=== PATIENT | female | born 1945 | race Caucasian/White ===

== ENCOUNTER → 2016-10-20 | Outpatient (CLI) | payer OTHER ==
[~2016-10-20] VITALS: Ht 165.1 cm; Wt 53.5 kg
[~2016-10-20] MED LIST: AMBIEN 5 MG TABL5 M1 PO; ATIVAN0.5 MG PO; CIPROFLOXACIN500 M1 PO; CYMBALTA60 MG PO; DILAUDID 2 MG TA2 MG PO; DILAUDID 4 MG TA4 M1 PO; DILAUDID 4 MG TA4 MG PO; DITROPAN XL5 M1 PO; DOLOPHINE HCL5 MG PO; EFFEXOR XR75 MG PO; ESTRACE1 TUBE VAG; FAMVIR250 MG PO; FLAGYL500 MG PO; GABAPENTIN 100100 MG PO; GABAPENTIN100 MG PO; IMODIUM MULTI-1 EACH; IMODIUM MULTI-1 EACH PO; LACTULOSE10 GM/15 M PO; LEVOTHYROXIN0.075 MG PO; LEVOTHYROXIN0.088 MG PO; LEVOXYL100 MCG PO; LEVSIN-SL0.125 MG SL; LEXAPRO 10 MG T10 M1 PO; LORAZEPAM 2MG TA2 M1 PO; MARINOL2.5 MG PO; MEGACE40 MG/ML PO; MEGESTROL40 MG/1 M1 PO; METHADONE HCL 110 M1 PO; METHADONE HCL5 MG PO; METHADOSE10 M1 PO; METOCLOPRAMIDE10 MG PO; MYRBETRIQ50 MG PO; NABUMETONE 500500 M2 PO; NEURONTIN 300300 M1 PO; NEURONTIN 300M300 M2 PO; NEURONTIN600 MG PO; NUCYNTA100 MG PO; NUCYNTA50 MG PO; NUCYNTA75 MG PO; PANTOPRAZOLE SO40 MG; PERCOCET 10-321 EACH PO; PROTONIX40 M2 PO; REMERON 30 MG T30 M1 PO; SONATA10 MG PO; SYNTHROID75 MCG PO; SYNTHROID88 MCG PO; TRAMADOL 50 MG50 MG PO; TRAZODONE 150150 M1 PO; TRAZODONE HCL100 MG PO; VENLAFAXIN75 MG/1 T1 PO; VESICARE 5 MG TA5 MG PO; ZOLOFT25 MG PO
--- NOTE | ~2016-10-20 | HPC ---
[facility] [place] [address] PAIN MANAGEMENT CONSULTATION Name: VIVIENNE SAVAGE Room #: REG [facility] Les#: [id number] Admission: 10/20/16 Attend Phys: Michel Rivas DO Discharge: Date of : 46 Report #: [id number] THIS REPORT FOR: //name// CC: Wiley Rivas The patient is a 70-year-old female being treated for coccydynia, abdominal pain requiring complex medication management. Last seen in the pain clinic 07/14/2016. The patient was continued on methadone 5 mg q. 8 hours and tramadol 50 mg 4 or 5 a day. Urine drug screen at that time was positive for prescribed medications. The patient returns to pain clinic today. She is actually doing remarkably well. She has been able to gain a little weight, BMI is up to 19.6 kilograms per meter squared, she has been down to 18.5 kilograms per meter squared in the past. She notes pain is fairly nominal about 5/10. She presents to pain clinic today with her usual blue seat cushion, which she sits upon. She notes she is desirous of weaning off of her methadone. She rates her pain actually about 5/10, but states she feels more functional overall. PHYSICAL EXAMINATION: Fairly unremarkable 70-year-old female, BMI is 19.6 kilograms per meter squared. Blood pressure is 111/62, pulse is 80, respirations 16. Alert and oriented to person, place and time, judged to be a reasonable historian. She denies any skin breakdown. States she has been ambulating reasonably well. Lower extremity strength is symmetric. Right colorectal exam is deferred. We reviewed the fact that opiate medications are being used to provide analgesia adequate to support activities of daily living, not attempting to achieve a specific pain score on the 0-10 Visual Analog Scale. The current opiate medications are providing sufficient analgesia to allow the patient to participate in activities of daily living. The patient is not exhibiting any aberrant behavior suggestive of drug diversion. The patient is not having any adverse reactions to medications. The patient is not suffering from daytime somnolence or mental acuity changes. The patient is managing opiate-induced constipation with appropriate zmba-bps-tvcotsp agents and dietary considerations. The patient was counseled on concern for caution with operating a motor vehicle while using opiate medications. A physical exam was performed and the patient's functional status was evaluated. All patients with back pain were advised against the bed rest greater than 4 days and were advised to return to normal activities. Pain score assessment was noted and the treatment plan was reviewed with the patient. All current medications, both prescribed and OTC [place] [address] PAIN MANAGEMENT CONSULTATION Name: VIVIENNE SAVAGE Room #: REG LORI Saldana#: [id number] Admission: 10/20/16 Attend Phys: Michel Rivas DO Discharge: Date of : 46 Report #: [id number] electronic medical record. Tobacco screening was accomplished and smoking cessation was advised when indicated. BMI was noted and diet/exercise modification was recommended for all patients following outside normal parameters. I reviewed with the patient today their responsibilities to safeguard prescription medications, reviewed their responsibility to utilize medications only as prescribed by the physician. They are to seek and receive pain medications only from 1 physician group ( [facility]). They are to use 1 pharmacy and keep the clinic informed if they change pharmacies. Their responsibilities include making followup visits in a timely fashion and to avoid abrupt discontinuation of medication usage. Their responsibilities further include bringing their medications (bottles from the pharmacy with residual pills) to the visit for possible confirmation of pill counts and the patient understands it is their responsibility to submit to random drug screens to ensure both that the medications prescribed are present, and that no other controlled substances are present. All prescriptions provided today were generated electronically. ASSESSMENT: Coccydynia, abdominal pain requiring complex medication management. The patient is desirous of weaning off of methadone, which I am hopeful we can do. We talked today at length. We have elected to continue methadone 5 mg q. 8 hours on the prescription, but I will ask the patient to cut the tablet in half (we checked and the tablet is indeed scored); however, start taking one in the morning and half at noon, 1 at night. If after one month, she does well with this, I will have her drop to half tablet in the morning, half at noon, and one at night for a second month and for the third month, we will have her take half a tablet t.i.d. I will have her come back in 3 months and bring back any and all methadone tablets. We will do pill count at that time and determine how low she has been able to get down to (half tablet 3 times a day?). If she weans well over next three months, I think we can easily drop to simply one half b.i.d. for about 2 weeks, one half h.s. for 2 weeks and hopefully stop altogether. We will continue tramadol as needed for breakthrough pain, currently up to 5 tablets a day, though she is actually taking well 4 or 5 a day. Discharged in good and stable condition. Follow up in 3 months for reevaluation, earlier if needed. <ELECTRONICALLY SIGNED> By: Michel Rivsa DO 10/25/16 0729 [id number] [id number] Michel Rivas DO /nt
[2016-10-20 13:08] VITALS: BP 111/62
== END | disposition home or self-care (01) ==
LOC: PAIN 07:34
DX: M53.3 Sacrococcygeal disorders, not elsewhere classified (principal); G89.29 Other chronic pain; R10.9 Unspecified abdominal pain; Z87.891 Personal history of nicotine dependence

== ENCOUNTER → 2017-01-25 | Outpatient (CLI) | payer OTHER, MEDICARE ==
[~2017-01-25] VITALS: Ht 165.1 cm; Wt 55.8 kg
[~2017-01-25] MED LIST changes: +ZOFRAN ODT4 MG PO
--- NOTE | ~2017-01-25 | HPC ---
[facility] [place] [address] PAIN MANAGEMENT CONSULTATION Name: VIVIENNE SAVAGE Room #: REG LORI Saldana#: [id number] Admission: 01/25/17 Attend Phys: Michel Rivas DO Discharge: Date of : 46 Report #: [id number] THIS REPORT FOR: //name// CC: Wiley Rivas SUBJECTIVE: The patient is a 71-year-old female being treated for coccydynia, abdominal pain requiring complex medication management. She was last seen in the pain clinic on 10/20/2016. Continued on baseline medication including methadone 8 mg, we had tried weaning this, but she could not get lower than 3 a day. When she did, she had increased pain and decreased functional status. She is continued with tramadol 50 mg up to 5 a day for breakthrough pain. She returns to pain clinic today noting medications are providing sufficient analgesia to participate in activities of daily living. She brings with her usual blue cushion that she uses to sit upon. She tells me pain is 7 on 10 but well controlled for her. She has actually gained a little bit of weight. Her BMI is up to 20.5 kilograms per meter squared. She has struggled with BMI being in the 17-18 range for quite some time. Last urine drug screen on 07/14/2016, was positive for prescribed medications. The patient tells me today also that she was diagnosed with osteopenia and low vitamin D. She was started on vitamin D supplementation 50,000 units. She feels unfortunately that this medication caused significant nausea. She self-discontinued the medication but still has some ongoing nausea. She requested and I supplied a prescription for ondansetron 4 mg oral disintegrating tablet to be used q.8 hours as needed for nausea and vomiting. The patient was cautioned about increased constipation with this agent. Prescription was generated for 15 tablets with 2 refills. We reviewed the fact that opiate medications are being used to provide analgesia adequate to support activities of daily living, not attempting to achieve a specific pain score on the 0-10 Visual Analog Scale. The current opiate medications are providing sufficient analgesia to allow the patient to participate in activities of daily living. The patient is not exhibiting any aberrant behavior suggestive of drug diversion. The patient is not having any adverse reactions to medications. The patient is not suffering from daytime somnolence or mental acuity changes. The patient is managing opiate-induced constipation with appropriate frnw-xor-ndjjjvp agents and dietary considerations. The patient was counseled on concern for caution with operating a motor vehicle while using opiate medications. A physical exam was performed and the patient's functional status was evaluated. All patients with back pain were advised against the bed rest greater than 4 days and were advised to return to normal activities. Pain score assessment was noted and the treatment plan was reviewed with the patient. All current medications, both prescribed and OTC were reviewed [place] [address] PAIN MANAGEMENT CONSULTATION Name: VIVIENNE SAVAGE Room #: REG LORI Saldana#: [id number] Admission: 01/25/17 Attend Phys: Michel Rivas DO Discharge: Date of : 46 Report #: [id number] electronic medical record. Tobacco screening was accomplished and smoking cessation was advised when indicated. BMI was noted and diet/exercise modification was recommended for all patients following outside normal parameters. I reviewed with the patient today their responsibilities to safeguard prescription medications, reviewed their responsibility to utilize medications only as prescribed by the physician. They are to seek and receive pain medications only from 1 physician group ( [facility]). They are to use 1 pharmacy and keep the clinic informed if they change pharmacies. Their responsibilities include making followup visits in a timely fashion and to avoid abrupt discontinuation of medication usage. Their responsibilities further include bringing their medications (bottles from the pharmacy with residual pills) to the visit for possible confirmation of pill counts and the patient understands it is their responsibility to submit to random drug screens to ensure both that the medications prescribed are present, and that no other controlled substances are present. All prescriptions provided today were generated electronically. ASSESSMENT: Coccydynia; abdominal pain requiring complex medication management, stable on baseline medication; some acute nausea and vomiting, status post using vitamin D prescription strength. RECOMMENDATIONS: Follow up with her treating physician for the vitamin D. I did offer Zofran ODT (oral disintegrating tablet) 4 mg, dispensed 15 tablets to use it p.r.n. for nausea, vomiting. We will continue baseline narcotic unchanged, methadone 5 mg q.8 hours, and tramadol 50 mg up to 5 a day. I have taken the liberty of writing for 3 months of current medication. Follow up at that time, earlier if needed. <ELECTRONICALLY SIGNED> By: Michel Rivas DO 01/26/17 0925 1517 [id number] Michel Rivas DO /nt
[2017-01-25 12:36] VITALS: BP 105/54
== END | disposition home or self-care (01) ==
LOC: PAIN 07:40
DX: M53.3 Sacrococcygeal disorders, not elsewhere classified (principal); R10.9 Unspecified abdominal pain; G89.29 Other chronic pain; F11.20 Opioid dependence, uncomplicated; Z87.891 Personal history of nicotine dependence

== ENCOUNTER → 2017-04-26 | Outpatient (CLI) | payer OTHER, MEDICARE ==
[~2017-04-26] VITALS: Ht 165.1 cm; Wt 56.6 kg
--- NOTE | ~2017-04-26 | HPC ---
[facility] [place] [address] PAIN MANAGEMENT CONSULTATION Name: VIVIENNE SAVAGE Room #: REG LORI Saldana#: [id number] Admission: 04/26/17 Attend Phys: Michel Rivas DO Discharge: Date of : 46 Report #: [id number] THIS REPORT FOR: //name// CC: Wiley Rivas The patient is a 71-year-old female, long treated in the pain clinic for coccydynia and neuropathic pain, component of some abdominal pain requiring complex medication management. Last visit was 01/25/2017. The patient has had multiple surgeries including proctectomy with creation of a colostomy with only marginal improvement of pain. She is osteopenic and is on vitamin D supplementation. She notes her pain as a 6 on a 0-10 visual analog scale, primarily in the rectal area. She feels that there is neuroma at this point. That is probably true. Physical exam shows 71-year-old female, BMI is 20.8 kilograms per meter squared. She brings with her, her usual blue cushion upon which she sits. Blood pressure is a little low at 91/58, pulse 80, respirations are 12. She is alert and oriented to person, place and time, judged to be a reasonable historian and appears somewhat cachectic, presentation classic for chronic disease. Lower extremity strength is diminished, but adequate for ambulation. Rectal exam is referred. She follows with Dr. Wheatley. Again, her lap-assisted proctectomy and incisional hernia repair was December of 2012. She had had, I believe for initial bowel resection in August of 2012 with the ileostomy creation, May of 2012. We reviewed the fact that opiate medications are being used to provide analgesia adequate to support activities of daily living, not attempting to achieve a specific pain score on the 0-10 Visual Analog Scale. The current opiate medications are providing sufficient analgesia to allow the patient to participate in activities of daily living. The patient is not exhibiting any aberrant behavior suggestive of drug diversion. The patient is not having any adverse reactions to medications. The patient is not suffering from daytime somnolence or mental acuity changes. The patient is managing opiate-induced constipation with appropriate nqke-vmb-zuglvia agents and dietary considerations. The patient was counseled on concern for caution with operating a motor vehicle while using opiate medications. A physical exam was performed and the patient's functional status was evaluated. All patients with back pain were advised against the bed rest greater than 4 days and were advised to return to normal activities. Pain score assessment was noted and the treatment plan was reviewed with the patient. All current medications, both prescribed and OTC were reviewed and reconciled on the electronic medical record. Tobacco screening was accomplished and smoking cessation was advised when indicated. BMI was noted and diet/exercise modification was recommended for all patients following outside normal parameters. [address] [address] PAIN MANAGEMENT CONSULTATION Name: VIVIENNE SAVAGE Room #: REG [facility] Les#: [id number] Admission: 04/26/17 Attend Phys: Michel Rivas DO Discharge: Date of : 46 Report #: [id number] I reviewed with the patient today their responsibilities to safeguard prescription medications, reviewed their responsibility to utilize medications only as prescribed by the physician. They are to seek and receive pain medications only from 1 physician group ( [facility]). They are to use 1 pharmacy and keep the clinic informed if they change pharmacies. Their responsibilities include making followup visits in a timely fashion and to avoid abrupt discontinuation of medication usage. Their responsibilities further include bringing their medications (bottles from the pharmacy with residual pills) to the visit for possible confirmation of pill counts and the patient understands it is their responsibility to submit to random drug screens to ensure both that the medications prescribed are present, and that no other controlled substances are present. All prescriptions provided today were generated electronically. ASSESSMENT: Chronic abdominal pain with coccydynia, requiring complex medication management, stable on baseline medication including methadone 5 mg t.i.d. We elected to drop down tramadol a little bit from 5 to 4 tablets a day. I have taken the liberty of writing for 3 months of current medication. Last urine drug screen was July 2016, positive for prescribed medications. We will plan on repeating urine drug screen at next visit. It will be around 1 year since last UDS at that time. <ELECTRONICALLY SIGNED> By: Michel Rivas DO 04/30/17 1427 [id number] [id number] Michel Rivas DO /nt
[2017-04-26 12:47] VITALS: BP 91/58
== END | disposition home or self-care (01) ==
LOC: PAIN 11:03
DX: R10.9 Unspecified abdominal pain (principal); G89.29 Other chronic pain; M53.3 Sacrococcygeal disorders, not elsewhere classified; F11.20 Opioid dependence, uncomplicated; F41.8 Other specified anxiety disorders; M85.88 Other specified disorders of bone density and structure, other site; Z87.891 Personal history of nicotine dependence; Z88.8 Allergy status to other drugs, medicaments and biological substances; Z98.890 Other specified postprocedural states

== ENCOUNTER → 2017-10-22 | Outpatient (CLI) | payer OTHER, MEDICARE ==
[~2017-10-22] VITALS: Ht 165.1 cm; Wt 51.7 kg
[~2017-10-22] MED LIST changes: +BACTRIM DS TAB1 EACH PO; +BUPRENORPHIN-N1 EACH SUBLING; +BUPRENORPHN-NA1 EACH SUBLING; +CLONIDINE0.1 PO; +SUBOXONE 8 MG-1 EAC3 SUBLING; +TROSPIUM CHLORI20 MG PO
--- NOTE | ~2017-10-22 | HPC ---
[facility] [place] [address] PAIN MANAGEMENT CONSULTATION Name: VIVIENNE SAVAGE Room #: REG LORI Saldana#: [id number] Admission: 10/22/17 Attend Phys: Michel Rivas DO Discharge: Date of : 46 Report #: [id number] THIS REPORT FOR: //name// CC: Wiley Rivas DATE OF SERVICE: 10/22/2017 HISTORY OF PRESENT ILLNESS: The patient is a 71-year-old female, long known to pain clinic, typically treated for chronic rectal pain, coccydynia requiring high risk complex medication management. She was last seen in pain clinic on 07/23/2017. We continued the patient on methadone 5 mg t.i.d., tramadol for breakthrough pain 1 tablet 3-4 times a day. She returns to pain clinic today. We had a prolonged discussion about therapeutic options. She was actually seen in the pain clinic from [id number], greater than 50% of this 25+ minute visit was spent counseling the patient. 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 She has had surgical resection and in fact has had a proctectomy with ongoing pain. She notes pain continues to be problematic, but she feels that she is relatively stable. Today, we had a discussion about her desire to wean off opiate analgesics. The patient was started on opiates obviously for chronic pain issues. She notes that she has withdrawal symptoms if she misses dose and is very concerned about continuing opiate analgesics. We have talked about opiate habituation and tolerance at length on many occasions. She tells me she is ready to try and wean off opiates. Unfortunately, as she tried to drop down from 15 mg methadone tablets 3 times a day to even 1/2 a tablet at midday, she felt she had some opiate withdrawal symptoms including acute anxiety and agitation. We reviewed the fact that opiate medications are being used to provide analgesia adequate to support activities of daily living, not attempting to achieve a specific pain score on the 0-10 Visual Analog Scale. The current opiate medications are providing sufficient analgesia to allow the patient to participate in activities of daily living. The patient is not exhibiting any aberrant behavior suggestive of drug diversion. The patient is not having any adverse reactions to medications. The patient is not suffering from daytime somnolence or mental acuity changes. The patient is managing opiate-induced constipation with appropriate mwxa-knp-fkkoiwq agents and dietary considerations. The patient was counseled on concern for caution with operating a motor vehicle while using opiate medications. A physical exam was performed and the patient's functional status was evaluated. All patients with back pain were advised against the bed rest greater than [address] [place] [address] PAIN MANAGEMENT CONSULTATION Name: VIVIENNE SAVAGE Room #: REG [facility] Saldana#: [id number] Admission: 10/22/17 Attend Phys: Michel Rivas DO Discharge: Date of : 46 Report #: [id number] days and were advised to return to normal activities. Pain score assessment was noted and the treatment plan was reviewed with the patient. All current medications, both prescribed and OTC were reviewed and reconciled on the electronic medical record. Tobacco screening was accomplished and smoking cessation was advised when indicated. BMI was noted and diet/exercise modification was recommended for all patients following outside normal parameters. I reviewed with the patient today their responsibilities to safeguard prescription medications, reviewed their responsibility to utilize medications only as prescribed by the physician. They are to seek and receive pain medications only from 1 physician group ( [facility]). They are to use 1 pharmacy and keep the clinic informed if they change pharmacies. Their responsibilities include making followup visits in a timely fashion and to avoid abrupt discontinuation of medication usage. Their responsibilities further include bringing their medications (bottles from the pharmacy with residual pills) to the visit for possible confirmation of pill counts and the patient understands it is their responsibility to submit to random drug screens to ensure both that the medications prescribed are present, and that no other controlled substances are present. All prescriptions provided today were generated electronically. The patient has history of generalized osteoarthritis. BMI is 19 kilograms per meter squared. She struggles to maintain nutrition and has been counseled regarding protein supplementation. Vital signs otherwise stable, blood pressure 118/69, pulse 86, respirations 16, room air oxygen saturation is 94%. Pain intensity is a 7 on a VAS. She has had a single fall 2 months ago, though she uses a cane to help with balance. She is not on a blood thinner. She is not hypertensive. Medicines were reconciled today. Last opiate consent to treat contract was signed in 03/2016. Opiate risk assessment tool scores are in the low range at 3. The patient again is cachectic. She carries with her usual blue approximately 2-1/2 inch thick foam cushion that she typically sits on. Colorectal exam was deferred. ASSESSMENT: Symptomatic chronic pain syndrome, perirectal and coccydynia pain status post proctectomy with opiate habituation and tolerance concerns. RECOMMENDATION: Long discussion with the patient today about therapeutic option. Ultimately, she is taking 15 mg of methadone a day equating to about Cymbalta 60 mg of morphine and tramadol 3-4 a day likely adding another 10 or 15 mEq of morphine. We talked about rotating to Suboxone. Pointed out that it is merely another opiate; however, it does have a ceiling effect and typically is purported to be a little easier to wean. Roughly equally analgesic dose would be 12 mg of buprenorphine. We have elected to rotate to Suboxone 8/2 mg film [facility] [address] [place] [address] PAIN MANAGEMENT CONSULTATION Name: VIVIENNE SAVAGEN Room #: REG LORI Vidales.#: [id number] Admission: 10/22/17 Attend Phys: Michel Rivas DO Discharge: Date of : 47 Report #: [id number] strips, 1 film strip sublingual in the morning and one-half in the evening for 15 days and then dropping down to 8 mg, i.e., 1 film strip daily (may use 1/2 film strip b.i.d.). We will try this for 4 weeks. I have also written a prescription for clonidine 0.1 mg to use at bedtime to help with any sympathetically mediated opiate withdrawal symptoms. The patient was discharged in good and stable condition. She has 16-1/2 methadone tablets left. This should be sufficient for about 5 days. She would like to wait 5 days and consider moving forward with the opiate wean as discussed. I suggested she take the Suboxone prescription to the pharmacy to get filled as they may not have this medication directly. I did use my [id number] TERESA number and told the patient that she will need to seek counseling for opiate habituation and addiction issues with helped for a counseling regarding distraction and other techniques to help manage chronic pain concerns. She was given contact information for Dr. Jaclyn Ramos ([phone]) and Dr. Jerome Elliott ([phone]). Both psychologists in her geographic area ([place], [place]). We have used Dr. Jaclyn Ramos many times for help with chronic pain concerns. The patient was discharged today in good stable condition after a prolonged visit. I did leave on the chart a prescription for methadone 5 mg t.i.d. and tramadol 50 mg 1 tablet 3-4 times a day, limit 100 tablets for 30 days if the patient fails Suboxone therapy and/or if she is unable to get the prescription filled. Discharged in good and stable condition. Follow up in 4 weeks for reevaluation. <ELECTRONICALLY SIGNED> By: Michel Rivas DO 10/24/17 0807 1437 [id number] Michel Rivas DO /nt
[2017-10-22 13:04] VITALS: BP 118/69
== END ==
LOC: PAIN 07:10
DX: G89.4 Chronic pain syndrome (principal); K62.89 Other specified diseases of anus and rectum; M53.3 Sacrococcygeal disorders, not elsewhere classified; F11.20 Opioid dependence, uncomplicated; Z98.890 Other specified postprocedural states; Z79.899 Other long term (current) drug therapy

== ENCOUNTER → 2017-11-23 | Outpatient (CLI) | payer OTHER, MEDICARE ==
[~2017-11-23] VITALS: Ht 165.1 cm; Wt 49.3 kg
--- NOTE | ~2017-11-23 | HPC ---
[facility] [place] [address] PAIN MANAGEMENT CONSULTATION Name: VIVIENNE SAVAGE Room #: REG Michelle Vidales.#: [id number] Admission: 11/23/17 Attend Phys: Michel Rivas DO Discharge: Date of : 46 Report #: [id number] THIS REPORT FOR: //name// CC: Wiley Rivas DATE OF SERVICE: 11/23/2017 The patient is a 71-year-old female, long treated for chronic rectal pain, coccydynia, requiring high-risk complex medication management. Last seen in the Pain Clinic on 10/22/2017. The patient had elected at that time to try and wean off of opiate analgesics. She has been stable on methadone 5 mg t.i.d. for quite some time. After a long discussion with the patient, we rotated to Suboxone, initially starting at 12 mg (one 8 mg and one-half of an 8 mg tablet daily) for about 10 days, then decreasing to 8 mg daily. We gave her contact information for . Dr. Jaclyn Ramos and Dr. Jerome Elliott, both psychologist in her geographic area ([place], [place]) who are versed in habituation, addiction, and pain issues. Unfortunately, she was unable to get in to any of these providers. To her credit, she has continued to wean her opiate analgesics. She returns to Pain Clinic today. We again had a prolonged visit, she was seen from 1325 to approximately 1350, greater than 50% of this 25-minute visit was spent counseling the patient. Again, the patient has an opiate consent to treat contract with contract signed 04/28/2016. Last random drug screen 07/23/2017 was positive for prescribed medication at that time including methadone and tramadol. To her credit, she has continued to wean opiate analgesics and is very desirous of same. I talked about chronic rectal pain, which she rates only to 3-5 on a VAS. She has a neuroma and consistently carries a small blue cushion upon what she sits. She states with weaning opiate, she has not had any issues with opiate withdrawal. No anxiety, nausea, or vomiting. Long discussion with the patient today about therapeutic options and continued weaning. After a prolonged discussion, we have elected to continue Suboxone, currently 8 mg. We will decrease to 6 mg for 20 days (one-half of an 8 mg tablet + a 2 mg tablet ) . I have taken the liberty of writing for Suboxone 2/0.5, #30 tablets. She will use this for 20 days (with one half of an 8 mg tab) and stop. She will then have 10 of the Suboxone 2 mg tablets in reserve. I have taken the liberty of writing for Suboxone 8/2 tablets dispensed #14. This will be released in 20 days. She will use one-half of a tablet for 28 days (4 mg). At that point, we will have her drop down to the 2 mg tablets and use the residual 10 tablets. I will see her back in approximately 60 days if we need to continue any opiate analgesics. If, however, she is able to continue off all [address] [address] PAIN MANAGEMENT CONSULTATION Name: VIVIENNE SAVAGE Room #: REG LORI Saldana#: [id number] Admission: 11/23/17 Attend Phys: Michel Rivas, DO Discharge: Date of : 46 Report #: [id number] opiates, we will see her simply on an as needed basis. Discharged in good and stable condition after prolonged visit. ASSESSMENT: Chronic rectal pain, coccydynia, status post proctectomy with chronic neuropathic pain requiring complex medication management. We reviewed the fact that opiate medications are being used to provide analgesia adequate to support activities of daily living, not attempting to achieve a specific pain score on the 0-10 Visual Analog Scale. The current opiate medications are providing sufficient analgesia to allow the patient to participate in activities of daily living. The patient is not exhibiting any aberrant behavior suggestive of drug diversion. The patient is not having any adverse reactions to medications. The patient is not suffering from daytime somnolence or mental acuity changes. The patient is managing opiate-induced constipation with appropriate iqrv-xhh-tshiaur agents and dietary considerations. The patient was counseled on concern for caution with operating a motor vehicle while using opiate medications. A physical exam was performed and the patient's functional status was evaluated. All patients with back pain were advised against the bed rest greater than 4 days and were advised to return to normal activities. Pain score assessment was noted and the treatment plan was reviewed with the patient. All current medications, both prescribed and OTC were reviewed and reconciled on the electronic medical record. Tobacco screening was accomplished and smoking cessation was advised when indicated. BMI was noted and diet/exercise modification was recommended for all patients following outside normal parameters. I reviewed with the patient today their responsibilities to safeguard prescription medications, reviewed their responsibility to utilize medications only as prescribed by the physician. They are to seek and receive pain medications only from 1 physician group ( [facility]). They are to use 1 pharmacy and keep the clinic informed if they change pharmacies. Their responsibilities include making followup visits in a timely fashion and to avoid abrupt discontinuation of medication usage. Their responsibilities further include bringing their medications (bottles from the pharmacy with residual pills) to the visit for possible confirmation of pill counts and the patient understands it is their responsibility to submit to random drug screens to ensure both that the medications prescribed are present, and that no other controlled substances are present. All prescriptions provided today were generated electronically. <ELECTRONICALLY SIGNED> By: Michel Rivas DO 11/26/17 0747 [id number] Michel Rivas DO /nt
[2017-11-23 13:04] VITALS: BP 108/62
== END ==
LOC: PAIN 11-19 11:23
DX: G89.29 Other chronic pain (principal); K62.89 Other specified diseases of anus and rectum; M53.3 Sacrococcygeal disorders, not elsewhere classified; M79.2 Neuralgia and neuritis, unspecified; Z79.899 Other long term (current) drug therapy; Z98.890 Other specified postprocedural states

== ENCOUNTER → 2017-12-31 | Outpatient (CLI) | payer OTHER, MEDICARE ==
[~2017-12-31] VITALS: Ht 165.1 cm; Wt 48.1 kg
--- NOTE | ~2017-12-31 | HPC ---
[facility] [place] [address] PAIN MANAGEMENT CONSULTATION Name: VIVIENNE SAVAGEN Room #: REG Michelle Saldana#: [id number] Admission: 12/31/17 Attend Phys: Michel Rivas DO Discharge: Date of : 46 Report #: [id number] THIS REPORT FOR: //name// CC: Wiley Rivas The patient is a 72-year-old female, originally seen for assistance with management of chronic perirectal pain. I believe I initially saw her in August 2012. She had chronic coccydynia. She had a surgical ileostomy. She was taking Percocet 10/325 for pain. We had a plan to rotate to Suboxone and wean off. Her insurance initially did not cover Suboxone, we rotated to methadone and hydromorphone for breakthrough. 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 She had ongoing pain in the anal stump for a number of years, again at that time treated with methadone and some breakthrough hydromorphone. She had a proctectomy late 2012. We had rotated the hydromorphone to tapentadol with methadone as a basal medication. Beginning of this year in October, the patient expressed desire to wean off of all opiates. At that time, she was taking methadone 5 mg t.i.d. and we had rotated to tramadol for breakthrough pain. She noted she was relatively comfortable at rest, felt she was at her maximum improvement following her perirectal surgeries. We rotated Suboxone / one and half tablets (12 mg) and slowly weaned down. She returned to the pain clinic today. She has been taking Suboxone 4 mg for 16 days. She notes no opiate withdrawal issues. She rates pain 2 on a VAS. Again, she notes a fairly comfortable at rest, the pain does seem to exacerbate sitting on harder chairs. We talked about general activity, she remains quite cachectic, BMI is 17.6 kg/m2. We had discussed this ad nauseum over the years. Today, we did discuss increasing physical activity. The patient used to have a dog that she would occasionally walk, dog about a year and a half ago, 4 months later she did get a mini schnauzer, she has had this dog for about 10 months. I talked about trying to take the dog for a walk on a daily basis. Ultimately, after discussion, the patient does agree that walking would help her general affective disorder, suggested she get outside and walk at least 20 minutes (simply walk 1 direction for 10 minutes and then turned around for another 10 minutes). PHYSICAL EXAMINATION: Otherwise is unchanged, 72-year-old female, again quite thin with a BMI of 17.6 kg/m2. Blood pressure is 107/65, pulse 75, respirations are 14. Cranial nerves 2-12 are grossly intact. She is alert and oriented to person, place and time, judged to be a reasonable historian. Again, sitting on her blue pillow, she is relatively comfortable. She rises from chair using armrest. Gait is slightly ataxic, but generally tandem. Lower extremity [address] [address] PAIN MANAGEMENT CONSULTATION Name: VIVIENNE SAVAGE Room #: REG CL Les#: [id number] Admission: 12/31/17 Attend Phys: Michel Rivas, Discharge: Date of : 46 Report #: [id number] strength is diminished, but symmetric. Rectal exam is deferred. ASSESSMENT: Chronic coccydynia, rectal pain, requiring complex medication management. RECOMMENDATIONS: Long discussion with the patient today. We have elected to continue Suboxone 4 mg daily (I have taken the liberty of writing for Suboxone 05/02, dispensed 15 strips). She has tried tablets, I wrote for the 2 mg tablets at last visit, they caused some nausea, she ultimately brought many of them back for us to destroy (I will continue with 1/2 strip for 30 days, keeping her dose at 4 mg for a total of about 35 days). I wrote for a second prescription for Suboxone 05/02, she will try cutting these in fourths. Unfortunately, the 2 mg tablets are quite costly, this seems to be the most thrifty way to get her to help wean her agent. At 2 mg strips, this should last about nearly 2 months. We will have her simply discontinue medication at that time. We will be happy to see her on an as needed basis. Discharged in good and stable condition. Hopefully, follow up only be if symptoms change, hopefully she will be able to wean completely off of all opiate analgesics as planned. By: [id number] Michel Rivas, /nt
[2017-12-31 12:31] VITALS: BP 107/65
== END ==
LOC: PAIN 07:21
DX: G89.29 Other chronic pain (principal); M53.3 Sacrococcygeal disorders, not elsewhere classified; Z79.899 Other long term (current) drug therapy

== ENCOUNTER → 2018-04-04 | Outpatient (CLI) | payer OTHER, MEDICARE ==
[~2018-04-04] VITALS: Ht 165.1 cm; Wt 44.9 kg
--- NOTE | ~2018-04-04 | HPC ---
[facility] [place] [address] PAIN MANAGEMENT CONSULTATION Name: VIVIENNE SAVAGE Room #: REG Michelle Saldana#: [id number] Admission: 04/04/18 Attend Phys: Michel Rivas DO Discharge: Date of : 46 Report #: [id number] THIS REPORT FOR: //name// CC: Wiley Rivas The patient is a 72-year-old female, typically treated for perirectal pain, coccydynia, neuropathic pain requiring complex medication management. Last seen in pain clinic on 12/31/2017. The patient had ultimately progressed to have a total colectomy in 2012, has had ongoing perirectal pain. She had been stable for a great deal of time on methadone 5 mg t.i.d. She wished to wean off medications. We rotated to Suboxone, and she actually had accomplished a very nice wean, was down to a literally 1 mg or less a day, weaning off Suboxone. Unfortunately, she fell last Sunday in the bathroom. She was started on her third round of different agents to help with urinary incontinence (tolterodine). One dose of this caused some subjective vertigo and dizziness. Because of this, she fell in the bathroom, significantly exacerbated axial back pain and perirectal pain. She did start using Suboxone up to 8/2 a day for a short period. She is back down to 12/30. She is scheduled to start seeing a psychiatrist and a psychologist at [facility]. Her intake evaluation is 04/17/2018. The patient suffers from lot of anxiety and anorexia. I think that there may have been some component of anxiety exacerbating her pain. I am happy that she is following with a psychiatrist. This may help with her general affective disorder, anxiety and may help with pain as well. I do not feel she has significant opiate habituation issues. She has been able to wean off her agent easily. PHYSICAL EXAMINATION: Today notes a cachectic 72-year-old female, BMI has dwindled even further down to 16.5 kilograms per meter squared (17.6 kilograms per meter squared at last visit). I talked again at length about concerns for her anorexia and likely component of osteopenia. I strongly encouraged to follow up with her psychiatrist. Vital signs are stable as noted in the EMR. She is alert and oriented to person, place and time, judged to be a reasonable historian. Rises from the chair using armrest. Gait is tandem. Lower extremity strength is diminished, but symmetric. Perirectal exam is deferred. She has subjective low back pain. ASSESSMENT: Perirectal pain, neuropathic pain, coccydynia, requiring complex medication management. RECOMMENDATION: Long discussion with the patient today. Ultimately, we would like to continue to provide another prescription for Suboxone 05/[address] [address] PAIN MANAGEMENT CONSULTATION Name: VIVIENNE SAVAGE Room #: REG LORI Saldana#: [id number] Admission: 04/04/18 Attend Phys: Michel Rivas DO Discharge: Date of : 46 Report #: [id number] #[id number] Directions to take half to one daily. She has a coupon from the suboxone chemical process operator enabling her to purchase 20 tablets for around 178 dollars. We discussed weaning off Suboxone again, and this is the plan: Continue with 0.5 film strip 4/1 daily for a few days and then start cutting this in half down to 2 and then ultimately a sliver at 1 mg. With this, I believe the patient should be able to wean off in a couple of weeks. She will have a few strips at home if she has acute exacerbation of pain. She has shown herself to be very diligent about weaning off this agent, and I trust that she will be able to do so again. No followup appointment was made. If she does require resumption of Suboxone for pain, we will have her follow up with Dr. Juan Stiles. Patient was seen for 25+ minute clinic visit, greater than 50% of this time was spent counseling patient. Encouraged to follow up with psychiatric/psychologist visits. Discussed resumption of opiate wean via Suboxone Rx. Discussed concerns for anorexia and concerns for osteopenia. No follow up appointment scheduled at this time. <ELECTRONICALLY SIGNED> By: Michel Rivas DO 04/05/18 0715 1353 1815 Michel Rivas DO /nt
[2018-04-04 12:36] VITALS: BP 105/63
== END ==
LOC: PAIN 07:09
DX: K62.89 Other specified diseases of anus and rectum (principal); M79.2 Neuralgia and neuritis, unspecified; M53.3 Sacrococcygeal disorders, not elsewhere classified; Z79.899 Other long term (current) drug therapy

== ENCOUNTER → 2018-07-25 | Outpatient (CLI) | payer OTHER, MEDICARE ==
[~2018-07-25] VITALS: Ht 165.1 cm; Wt 42.6 kg
--- NOTE | ~2018-07-25 | HPC ---
[facility] [place] [address] PAIN MANAGEMENT CONSULTATION Name: VIVIENNE SAVAGE Room #: REG [facility] Les#: [id number] Admission: 07/25/18 Attend Phys: Gabrielle Krishnamurthy Discharge: Date of : 46 Report #: [id number] THIS REPORT FOR: //name// CC: Gabrielle Moore DATE OF SERVICE: 07/25/2018 CHIEF COMPLAINT: Today here for refill of medical management for her chronic rectal pain. HISTORY OF PRESENT ILLNESS: The patient is a 72-year-old female who has been treated for her perirectal pain, neuropathic pain requiring complex medication management. She was last seen in the pain clinic by Dr. Michel Rivas in 03/2018. She has had ongoing pain that resulted in a total colectomy. The patient today has been having increased problems with her GI tract and is actually having a barium swallow tomorrow. She is being seen by Dr. Wheatley. She is continuing to lose weight and is very anorexic. Since our last visit in March, she has lost 5 pounds. She states that her pain medicine is helpful in relieving some of her pain that is chronic and achy in her rectal area. She also sits on a pillow at all times. Rates her pain today as 5/10. She states that she would though like to get off of her Suboxone, but is unable to do so and is requesting a refill at this time. ALLERGIES: AMOXICILLIN, OXYBUTYNIN, TROSPIUM, STATINS, HYDROCODONE, MIRALAX, AND LATEX. CURRENT MEDICATIONS: She takes on a daily basis Suboxone 8/2 one-half a film daily, Synthroid 75 mcg a day, trazodone 200 mg a day and lorazepam 0.5 mg twice a day. PQRS: 1. The patient has osteoarthritis in her back and joints. Denies rheumatoid arthritis. 2. Height 5 feet 5 inches, weight 94, BMI is 15.6. 3. Blood pressure is 100/63, pulse is 67, respirations 16, oxygen sat is 99. 4. Pain score today is 5/10. 5. Denies dizziness. Does not need help walking or standing and has not fallen in the last 3 months. 6. No blood thinners. 7. No History of hypertension. 8. Does have opioid therapy greater than 6 weeks and has an opioid signed contract on the chart. 9. The patient has a low risk assessment tool. 10. Functional assessment is 32/70. 11. The patient's recreational drug use, she denies. She states she is a [address] [address] PAIN MANAGEMENT CONSULTATION Name: VIVIENNE SAVAGE Room #: REG [facility] Les#: [id number] Admission: 07/25/18 Attend Phys: Gabrielle Krishnamurthy Discharge: Date of : 46 Report #: [id number] former smoker, but not smoking at this time and is not using alcohol. We did do [facility] PDMP, on that she is appropriate with her narcotic refill from Dr. Michel Rivas in the past and now will be Dr. Stiles. The patient also takes benzodiazepines that seem appropriate from her stated doctor. The patient states she does lock up her medicines and so no apparent abuse or aberrant behavior is noted. PHYSICAL EXAMINATION: Today, this 72-year-old female, catatonic, very anorexic female, has dwindled her BMI even further from last visit by decreasing 5 pounds within 3 months. She is alert and oriented without sedation. She rises from the chair using the armrest. Her gait is tandem. Her lower extremity and upper extremities strength is diminished, but symmetrical. She does state she has low back pain. DIAGNOSTIC IMPRESSION: 1. Perirectal pain. 2. Neuropathic pain. 3. Complex medication management. We reviewed the fact that opiate medications are being used to provide analgesia adequate to support activities of daily living, not attempting to achieve a specific pain score on the 0-10 Visual Analog Scale. The current opiate medications are providing sufficient analgesia to allow the patient to participate in activities of daily living. The patient is not exhibiting any aberrant behavior suggestive of drug diversion. The patient is not having any adverse reactions to medications. The patient is not suffering from daytime somnolence or mental acuity changes. The patient is managing opiate-induced constipation with appropriate tbdz-fnb-zfhznzm agents and dietary considerations. The patient was counseled on concern for caution with operating a motor vehicle while using opiate medications. A physical exam was performed and the patient's functional status was evaluated. All patients with back pain were advised against the bed rest greater than 4 days and were advised to return to normal activities. Pain score assessment was noted and the treatment plan was reviewed with the patient. All current medications, both prescribed and OTC were reviewed and reconciled on the electronic medical record. Tobacco screening was accomplished and smoking cessation was advised when indicated. BMI was noted and diet/exercise modification was recommended for all patients following outside normal parameters. I reviewed with the patient today their responsibilities to safeguard prescription medications, reviewed their responsibility to utilize medications only as prescribed by the physician. They are to seek and receive pain medications only from 1 physician group ([facility]). They are to use [address] [address] PAIN MANAGEMENT CONSULTATION Name: VIVIENNE SAVAGE Room #: REG [facility]#: [id number] Admission: 07/25/18 Attend Phys: Gabrielle Krishnamurthy Discharge: Date of : 46 Report #: [id number] pharmacy and keep the clinic informed if they change pharmacies. Their responsibilities include making followup visits in a timely fashion and to avoid abrupt discontinuation of medication usage. Their responsibilities further include bringing their medications (bottles from the pharmacy with residual pills) to the visit for possible confirmation of pill counts and the patient understands it is their responsibility to submit to random drug screens to ensure both that the medications prescribed are present, and that no other controlled substances are present. All prescriptions provided today were generated electronically. PLAN: 1. It was discussed today with the patient for a significant amount of time regarding her appetite and her significant weight loss. The patient states that Dr. Wheatley is continuing to treat her and has ordered barium swallow for tomorrow at [facility] and she continues under his care and he has done other tests recently to determine her weight loss. She states that she does have an appetite, but is not absorbing any food and her ileostomy fill quite quickly after eating anything. 2. We provided her a prescription for Suboxone 05/02 film strips, 20. The patient will use half to one film a day. The patient is hopeful to be able to decrease this to a quarter to a half film per day, then half to none and then off. 3. The patient will be seen in 3 months or sooner if needed for further pain control. The patient was seen in collaboration with Dr. Juan Stiles today. <ELECTRONICALLY SIGNED> By: Gabrielle Krishnamurthy 07/26/18 1222 1454 0226 Gabrielle Krishnamurthy /nt
[2018-07-25 14:02] VITALS: BP 100/63
== END ==
LOC: PAIN 06:56
DX: K62.89 Other specified diseases of anus and rectum (principal); G89.29 Other chronic pain; M79.2 Neuralgia and neuritis, unspecified; Z79.899 Other long term (current) drug therapy

== ENCOUNTER → 2018-10-07 | Outpatient (CLI) | payer OTHER, MEDICARE ==
[~2018-10-07] VITALS: Ht 165.1 cm; Wt 42.8 kg
[2018-10-07 12:59] VITALS: BP 104/56
--- NOTE | 2018-10-07 13:01 | NUR ---
Pain Clinic Assessment: 1. History of Osteoarthritis: GENERALIZED History of Rheumatoid Arthritis: Not Applicable 2. Height: 5 ft. 5 in. 165.1 cm. Weight: 94.4 lb. oz. 42.819 kg. Patient's BMI: 15.7 3. Vital Signs: BP: 104/56 Pulse: 71 Resp: 16 Temp: 02 Sat: 97 ECG Mon: 4. Pain Intensity: 5 5. Fall Risk: Dizziness: N Needs help standing or walking: N Fallen in the last 3 months: N Fall risk comments: 6. Patient on Blood Thinner: None 7. History of Hypertension: N 8. Opioid Therapy greater than 6 weeks: Y Opiate Contract Signed: 12/31/17 9. Risk Assessment Tool Provided: LOW RISK 0/3 10. Functional Assessment Tool: 11. Recreational Drug Use: Never Drug Type: Tobacco Use: Former Smoker Tobacco Type: Amount or Packs/day: How Many Years: Alcohol Use: No Frequency: Quant:
--- NOTE | 2018-10-08 08:10 | HPC ---
[facility] [address] [place] [address] PAIN MANAGEMENT CONSULTATION Name: VIVIENNE SAVAGE Room #: REG LORI Saldana#: [id number] Admission: 10/07/18 Attend Phys: Gabrielle Krishnamurthy Discharge: Date of : 47 Report #: [id number] THIS REPORT FOR: //name// CC: Gabrielle Stiles DATE OF SERVICE: 10/07/2018 CHIEF COMPLAINT: Chronic rectal pain. HISTORY OF PRESENT ILLNESS: This is a 72-year-old female who has been treated for perirectal pain and neuropathic pain requiring complex medical management. 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 She is here for refill of her Suboxone. The patient tells me that she has been taking about 3 mg per day, last prescriptions that we wrote for the patient were in July, I think it may be slightly less medication than she is reporting. The patient tells me that she takes a half and then a quarter of the other half of her medication. She would like to stay on this regimen for another month and then she will decrease to half of a half or quarter of a patch and then slowly wean off as she is transitioning to do. The patient tells me that she recently started Myrbetriq 50 mg to help with her constipation, diarrhea. She tells me that her ileostomy is normal right now output for her. She tells me that she is not having any daytime somnolence and just would like a refill of her Suboxone today. CURRENT LIST OF ALLERGIES: AMOXICILLIN, STATINS, HYDROCODONE, MIRALAX, LATEX, OXYBUTYNIN. CURRENT LIST OF MEDICATIONS: Suboxone 8/2 film as directed, Zofran 4 mg ODT, Synthroid 0.75 tablets daily, trazodone 200 mg at bedtime and lorazepam 0.5 twice a day as needed for anxiety. PQRS: 1. The patient has osteoarthritis in her back and her joints. Denies rheumatoid arthritis. 2. Height 5 feet 5 inches, weight is 94, BMI is 15.6. 3. Vital signs: Blood pressure 100/63, pulse is 67, respirations 16, oxygen sat is 99%. Pain score is 5/10. 4. Denies dizziness. Does not need help walking or standing, has not fallen in the last 3 months. 5. The patient is not on any blood thinners and denies history of hypertension. 6. Opioid therapy is greater than 6 weeks. Therefore, an opioid signed contract is on the chart. 7. Risk assessment tool is low and her functional assessment is 32/70. [address] [address] PAIN MANAGEMENT CONSULTATION Name: VIVIENNE SAVAGE Room #: REG Michelle Saldana#: [id number] Admission: 10/07/18 Attend Phys: Gabrielle Krishnamurthy Discharge: Date of : 47 Report #: [id number] 8. Recreational drug use, she denies, is a former smoker and does not drink alcohol. We did check the prescription monitoring system, the patient filling appropriately from Dr. Juan Stiles. We will check a drug screen on her next visit, the last one has been within a year. The patient tells me she safeguards her medications. PHYSICAL EXAMINATION: GENERAL: This is a 72-year-old female who is very catatonic, very anorexic female. Her weight has stabilized at 94 pounds from the last visit. She is alert and orientated without sedation and proved to be a good historian. HEENT: Normocephalic, atraumatic. Extraocular eye muscles are intact. Mucous membranes are dry. Her hearing is adequate. MUSCULOSKELETAL: She rises from the chair using the armrest. Her gait is tandem. Her lower and upper extremity strength is diminished, but symmetrical. She does state that she has some low back pain and rectal pain today. ASSESSMENT: 1. Perirectal pain. 2. Neuropathic pain. 3. Complex medical management. 4. Coxodynia. We reviewed the fact that opiate medications are being used to provide analgesia adequate to support activities of daily living, not attempting to achieve a specific pain score on the 0-10 Visual Analog Scale. The current opiate medications are providing sufficient analgesia to allow the patient to participate in activities of daily living. The patient is not exhibiting any aberrant behavior suggestive of drug diversion. The patient is not having any adverse reactions to medications. The patient is not suffering from daytime somnolence or mental acuity changes. The patient is managing opiate-induced constipation with appropriate vdlc-gxh-jvzaglg agents and dietary considerations. The patient was counseled on concern for caution with operating a motor vehicle while using opiate medications. A physical exam was performed and the patient's functional status was evaluated. All patients with back pain were advised against the bed rest greater than 4 days and were advised to return to normal activities. Pain score assessment was noted and the treatment plan was reviewed with the patient. All current medications, both prescribed and OTC were reviewed and reconciled on the electronic medical record. Tobacco screening was accomplished and smoking cessation was advised when indicated. BMI was noted and diet/exercise modification was recommended for all patients following outside normal parameters. I reviewed with the patient today their responsibilities to safeguard prescription medications, reviewed their responsibility to utilize medications [address] [address] PAIN MANAGEMENT CONSULTATION Name: VIVIENNE SAVAGE [id number] Admission: 10/07/18 Attend Phys: Gabrielle Segoviamu Discharge: Date of : 46 Report #: [id number] only as prescribed by the physician. They are to seek and receive pain medications only from 1 physician group ( [facility]). They are to use 1 pharmacy and keep the clinic informed if they change pharmacies. Their responsibilities include making followup visits in a timely fashion and to avoid abrupt discontinuation of medication usage. Their responsibilities further include bringing their medications (bottles from the pharmacy with residual pills) to the visit for possible confirmation of pill counts and the patient understands it is their responsibility to submit to random drug screens to ensure both that the medications prescribed are present, and that no other controlled substances are present. All prescriptions provided today were generated electronically. PLAN: 1. We discussed treatment options today with this patient. She tells me that she is taking about 3 mg of Suboxone a day. I encouraged her to try to decrease her strength from 8/2, to 4/1, this would require less cutting for her in trying to wean off her pills. The patient feels that she needs to stay on her current regimen for at least another month and then she will taper herself to a lower dose of 2 mg, then in the next visit she will get a script for 4/1 mg Suboxone, #20 of them. The patient scripts given today of 8/2, #20 and then will refill at a lower strength at next visit. The patient is agreeable with this plan of care. 2. The patient tells me she started a new medicine for her bowel regimen and feels so far has only been 6 days, but thinks it may be helping. Hopefully, her weight will remain stable on taking this new medication. She has not lost weight since her last visit here in the clinic. 3. The patient will be seen in 3 months or sooner depending on her Suboxone use. The patient seen in collaboration today with Dr. Juan Stiles. <ELECTRONICALLY SIGNED> By: Gabrielle Krishnamurthy 10/08/18 0810 [id number] Gabrielle Krishnamurthy /nt
== END ==
LOC: PAIN 07:37
DX: K62.89 Other specified diseases of anus and rectum (principal); M79.2 Neuralgia and neuritis, unspecified; M53.3 Sacrococcygeal disorders, not elsewhere classified

== ENCOUNTER → 2019-01-13 | Outpatient (CLI) | payer OTHER, MEDICARE ==
[~2019-01-13] VITALS: Ht 165.1 cm; Wt 44.2 kg
[2019-01-13 12:52] VITALS: BP 95/53
--- NOTE | 2019-01-13 13:03 | NUR ---
Pain Clinic Assessment: 1. History of Osteoarthritis: GENERALIZED History of Rheumatoid Arthritis: Not Applicable 2. Height: 5 ft. 5 in. 165.1 cm. Weight: 97.4 lb. oz. 44.180 kg. Patient's BMI: 16.2 3. Vital Signs: BP: 95/53 Pulse: 72 Resp: 12 Temp: 02 Sat: 97 ECG Mon: 4. Pain Intensity: 5 5. Fall Risk: Dizziness: N Needs help standing or walking: N Fallen in the last 3 months: N Fall risk comments: 6. Patient on Blood Thinner: None 7. History of Hypertension: N 8. Opioid Therapy greater than 6 weeks: Y Opiate Contract Signed: 12/31/17 9. Risk Assessment Tool Provided: LOW RISK 0 10. Functional Assessment Tool: 11. Recreational Drug Use: Never Drug Type: Tobacco Use: Former Smoker Tobacco Type: Amount or Packs/day: How Many Years: Alcohol Use: No Frequency: Quant:
--- NOTE | 2019-01-14 09:43 | HPC ---
[facility] [place] [address] PAIN MANAGEMENT CONSULTATION Name: VIVIENNE SAVAGE Room #: REG [facility] MSon.#: [id number] Admission: 01/13/19 ������������������ Attend Phys: Gabrielle Krishnamurthy Discharge: ������������������ Date of : 47 Report #: [id number] THIS REPORT FOR: //name// CC: Gabrielle Moore DATE OF SERVICE: 01/13/2019 CHIEF COMPLAINT: Chronic rectal pain. HISTORY OF PRESENT ILLNESS: The patient is a 73-year-old female who returns to the Pain Clinic today for refill of her medications that she uses to help treat her perirectal pain and neuropathic pain. The patient tells me that she has been doing well since our last visit in October. She is rating her pain score 5/10. She continues to take very minimal doses of her Suboxone. She is requiring about a fourth of a film of the Suboxone 8/2 per day. She tells me she has not been hospitalized for any problems regarding to her ileostomy and she has not had any illnesses or falls this winter. The patient tells me that she is comfortable with the current medication regimen and would like a refill of that. She does not have any problems with daytime sleepiness or any constipation issues since she does have her ileostomy. ALLERGIES: AMOXICILLIN, OXYBUTYNIN, STATIN, HYDROCODONE, MIRALAX, AND LATEX. MEDICATIONS: Suboxone 8/2, Zofran 4 mg ODT p.r.n., Synthroid 75 mcg tablets, trazodone 200 mg at bedtime, and Ativan 0.5 mg b.i.d. PQRS: 1. She has osteoarthritis in her back and her joints. She denies any rheumatoid arthritis. 2. Height is 5 feet 5 inches, weight is 97, BMI is 16. 3. Vital signs: 95/53, pulse is 72, oxygen sat is 97. 4. Pain score is 5/10. 5. Fall risk. Denies dizziness. Does not need help walking or standing, has not fallen in the last 3 months. 6. The patient is not on any blood thinners and does not take medicine for hypertension. 7. Opioid therapy is greater than 6 weeks. Therefore, an opiate signed contract is on the chart. 8. Risk assessment tool is low. Functional assessment is 35/70. 9. Recreational drug use, she denies. She is a former smoker and does not drink alcohol. 10. We did check the prescription monitoring system. The patient is filling appropriately for her medications and we will check a buccal drug screen on this patient today since it has been greater than one year. [address] [address] PAIN MANAGEMENT CONSULTATION Name: VIVIENNE SAVAGE Room #: REG Michelle Saldana#: [id number] Admission: 01/13/19 ������������������ Attend Phys: Gabrielle Krishnamurthy Discharge: ������������������ Date of : 46 Report #: [id number] PHYSICAL EXAMINATION: GENERAL: This is a 73-year-old female who is very catatonic, very anorexic female. She has gained a few pounds since her last visit and now is currently at 97 pounds. She is alert and orientated without sedation. HEENT: Normocephalic, atraumatic. Extraocular eye muscles are intact. Mucous membranes are dry. Her hearing is adequate. MUSCULOSKELETAL: Her gait is tandem. She does rise from the chair using the armrest. She is sitting on a pillow, which she has brought with her today. Her lower and upper extremity strength is diminished, but symmetrical. RECTAL: She does complain of rectal pain today. ASSESSMENT: 1. Perirectal pain. 2. Neuropathic pain. 3. Complex medical management. 4. Coccydynia. We reviewed the fact that opiate medications are being used to provide analgesia adequate to support activities of daily living, not attempting to achieve a specific pain score on the 0-10 Visual Analog Scale. The current opiate medications are providing sufficient analgesia to allow the patient to participate in activities of daily living. The patient is not exhibiting any aberrant behavior suggestive of drug diversion. The patient is not having any adverse reactions to medications. The patient is not suffering from daytime somnolence or mental acuity changes. The patient is managing opiate-induced constipation with appropriate exij-fvk-qpcuyel agents and dietary considerations. The patient was counseled on concern for caution with operating a motor vehicle while using opiate medications. A physical exam was performed and the patient's functional status was evaluated. All patients with back pain were advised against the bed rest greater than 4 days and were advised to return to normal activities. Pain score assessment was noted and the treatment plan was reviewed with the patient. All current medications, both prescribed and OTC were reviewed and reconciled on the electronic medical record. Tobacco screening was accomplished and smoking cessation was advised when indicated. BMI was noted and diet/exercise modification was recommended for all patients following outside normal parameters. I reviewed with the patient today their responsibilities to safeguard prescription medications, reviewed their responsibility to utilize medications only as prescribed by the physician. They are to seek and receive pain medications only from 1 physician group ([facility]). They are to use 1 pharmacy and keep the clinic informed if they change pharmacies. Their responsibilities include making followup visits in a timely fashion and to avoid abrupt discontinuation of medication usage. Their responsibilities further [address] [address] PAIN MANAGEMENT CONSULTATION Name: VIVIENNE SAVAGE [facility] #: [facility] [id number] Admission: 01/13/19 ������������������ Attend Phys: Gabrielle Krishnamurthy Discharge: ������������������ Date of : 47 Report #: [id number] include bringing their medications (bottles from the pharmacy with residual pills) to the visit for possible confirmation of pill counts and the patient understands it is their responsibility to submit to random drug screens to ensure both that the medications prescribed are present, and that no other controlled substances are present. All prescriptions provided today were generated electronically. PLAN: 1. We discussed treatment options with the patient today. The patient tells me that she is doing well on her current dose of Suboxone. She does use it very sparingly at a quarter of film a day of Suboxone 8/2 and requesting refills. Scripts given today by Dr. Juan Stiles who did see the patient today for #20 film of Suboxone 8/2 and script for Zofran 4 mg ODT #10 with 3 additional refills. 2. The patient will return for a followup visit when she needs a refill of her medicines, the last time it lasted her about 4 months. So, therefore, she will make an appointment near that time. 3. Dr. Juan Stiles did see the patient in collaborative care. ��������������������������������������������� <ELECTRONICALLY SIGNED> ���������������������������������������� By: Gabrielle Krishnamurthy ��������������������������������������������� 01/14/19 0943 [id number] Gabrielle Krishnamurthy /darrell
== END ==
LOC: PAIN 07:05
DX: M53.3 Sacrococcygeal disorders, not elsewhere classified (principal); K62.89 Other specified diseases of anus and rectum; M79.2 Neuralgia and neuritis, unspecified; G89.29 Other chronic pain; Z79.899 Other long term (current) drug therapy; Z79.891 Long term (current) use of opiate analgesic; Z88.1 Allergy status to other antibiotic agents; Z88.5 Allergy status to narcotic agent; Z91.040 Latex allergy status

== ENCOUNTER → 2019-05-26 | Outpatient (CLI) | payer OTHER, MEDICARE ==
[~2019-05-26] VITALS: Ht 165.1 cm; Wt 45.8 kg
[~2019-05-26] MED LIST changes: +TIZANIDINE HCL 22 M1 PO
--- NOTE | ~2019-05-26 | HPC ---
[facility] [address] [place] [address] PAIN MANAGEMENT CONSULTATION Name: VIVIENNE SAVAGE Room #: REG LORI Vidales.#: [id number] Admission: 05/26/19 Attend Phys: Juan Stiles MD Discharge: Date of : 47 Report #: [id number] THIS REPORT FOR: //name// CC: Wiley Stiles DATE OF SERVICE: 05/26/2019 Followup visit for medication management of chronic intractable pain. The patient returns to pain clinic today for renewal of her Suboxone. She is using 0.25 of a Suboxone film 05/02 and finds that one film daily is enough to provide good pain relief and prevent any sort of opioid withdrawal. I have agreed to continue providing this medication for her. Her pain is reasonably well managed. She scores her pain as a 5, which is fairly typical for her. She has an ileostomy. She has malnutrition and is working hard at maintaining weight. She has gained a slight amount of weight. Her BMI is up to 16.8. She has some ways to go. VITAL SIGNS: Blood pressure 103/67, heart rate 71, respirations 15. Pain intensity 5/10. She is not a fall risk. She moves from independently standing position and ambulates without antalgic features to her gait. There is mild tenderness across the low back. She has complaints of perirectal pain and radiating pain into her legs. IMPRESSION: 1. Perirectal pain. 2. Neuropathic pain. 3. Coccydynia. 4. Management of Suboxone 8/2 for pain management. PLAN: I renewed her medication under terms of our written agreement. She will carefully manage it. She denies any other use of medication. We reviewed our opioid agreement. Her risk assessment tool score is low. She denies use of tobacco as a former smoker and does not drink alcohol. [employer] prescription drug monitoring program is positive for buprenorphine and lorazepam provided by Dr. Moore. We discussed the interaction of opioids and [facility] [address] [place] [address] PAIN MANAGEMENT CONSULTATION Name: VIVIENNE SAVAGE Room #: REG [facility] Valorie.#: [id number] Admission: 05/26/19 Attend Phys: Juan Stiles MD Discharge: Date of : 47 Report #: [id number] benzodiazepines. She will continue carefully use these smaller doses. Follow up as needed. She has medications ordered for 3 months. By: [id number] Juan Stiles MD /nt
[2019-05-26 13:18] VITALS: BP 103/67
--- NOTE | 2019-05-26 13:20 | NUR ---
Pain Clinic Assessment: 1. History of Osteoarthritis: GENERALIZED History of Rheumatoid Arthritis: Not Applicable 2. Height: 5 ft. 5 in. 165.1 cm. Weight: 101.0 lb. oz. 45.813 kg. Patient's BMI: 16.8 3. Vital Signs: BP: 103/67 Pulse: 71 Resp: 15 Temp: 02 Sat: 96 ECG Mon: 4. Pain Intensity: 5 5. Fall Risk: Dizziness: N Needs help standing or walking: N Fallen in the last 3 months: N Fall risk comments: 6. Patient on Blood Thinner: None 7. History of Hypertension: N 8. Opioid Therapy greater than 6 weeks: Y Opiate Contract Signed: 12/31/17 9. Risk Assessment Tool Provided: LOW RISK 0 10. Functional Assessment Tool: 11. Recreational Drug Use: Never Drug Type: Tobacco Use: Former Smoker Tobacco Type: Amount or Packs/day: How Many Years: Alcohol Use: No Frequency: Quant:
== END ==
LOC: PAIN 06:55
DX: M53.3 Sacrococcygeal disorders, not elsewhere classified (principal); K62.89 Other specified diseases of anus and rectum

== ENCOUNTER → 2019-11-03 | Outpatient (CLI) | payer OTHER, MEDICARE ==
[~2019-11-03] VITALS: Ht 165.1 cm; Wt 45.2 kg
[2019-11-03 12:52] VITALS: BP 97/60
--- NOTE | 2019-11-03 12:54 | NUR ---
Pain Clinic Assessment: 1. History of Osteoarthritis: GENERALIZED History of Rheumatoid Arthritis: Not Applicable 2. Height: 5 ft. 5 in. 165.1 cm. Weight: 99.6 lb. oz. 45.178 kg. Patient's BMI: 16.6 3. Vital Signs: BP: 97/60 Pulse: 75 Resp: 18 Temp: 02 Sat: 96 ECG Mon: 4. Pain Intensity: 4 5. Fall Risk: Dizziness: N Needs help standing or walking: N Fallen in the last 3 months: N Fall risk comments: 6. Patient on Blood Thinner: None 7. History of Hypertension: N 8. Opioid Therapy greater than 6 weeks: Y Opiate Contract Signed: 12/31/17 9. Risk Assessment Tool Provided: LOW RISK 0 10. Functional Assessment Tool: 11. Recreational Drug Use: Never Drug Type: Tobacco Use: Former Smoker Tobacco Type: Amount or Packs/day: How Many Years: Alcohol Use: No Frequency: Quant:
--- NOTE | 2019-11-05 10:16 | HPC ---
[facility] [address] [place] [address] PAIN MANAGEMENT CONSULTATION Name: VIVIENNE SAVAGE Room #: REG [facility] Les#: [id number] Admission: 11/03/19 Attend Phys: Gabrielle Krishnamurthy Discharge: Date of : 47 Report #: [id number] THIS REPORT FOR: cc: Wiley Moore MD, Kirk D. MD Hocker, Amanda CNS ~ THIS REPORT FOR: //name// DATE OF SERVICE: 11/03/2019 CHIEF COMPLAINT: Chronic intractable pain. HISTORY OF PRESENT ILLNESS: This is a very pleasant 73-year-old female who returns to the pain clinic today for refill of her medications that she uses to help treat her ongoing perirectal pain and neuropathic pain. She was last here in May and has done quite well, rating her pain score as 4/10. She fills a fourth to half of the Suboxone is very beneficial in controlling her pain, today rating at 4/10. She is sitting on a soft cushion that does help her rectal area as well. She denies problems with daytime sleepiness or constipation as a result of her medications. The patient does report that her was recently diagnosed with liver cancer, so she has been in the hospital quite a bit and has been experiencing stress as a result of this new diagnosis. They are unsure of all of his treatment plans at this time, so she does report she has had increased sitting, which has increased some of her pain on some days. ALLERGIES: AMOXICILLIN, OXYBUTYNIN, TROSPIUM, STATIN, HYDROCODONE, MIRALAX, AND LATEX. MEDICATIONS: Suboxone 8/2, tizanidine, Synthroid, trazodone and Ativan. PQRS: 1. She has generalized osteoarthritis in multiple joints. She denies any rheumatoid arthritis. 2. Height is 5 feet 5 inches, weight is 99, BMI is 16. 3. Vital signs, blood pressure 97/60, pulse is 75, respirations 18, and oxygen sat is 96. 4. Pain score is 4/10. 5. Denies dizziness, does not need help walking or standing, has not fallen in the last 3 months. 6. The patient is not on any blood thinners, does not take medicine for hypertension. Opioid therapy is greater than 6 weeks. She has opioid signed contract on the chart. Her risk assessment tool is low. Functional assessment is 35/70. [address] [address] PAIN MANAGEMENT CONSULTATION Name: VIVIENNE SAVAGE Room #: REG CLI [facility]#: [id number] Admission: 11/03/19 Attend Phys: Gabrielle Krishnamurthy Discharge: Date of : 47 Report #: [id number] 7. Recreational drug use, she denies. She is a former smoker and does not drink alcohol. According to the prescription monitoring system, the patient last filled her medication in May. She does fill these very sparingly due to her low intake of medications. PHYSICAL EXAMINATION: GENERAL: This is an alert and oriented, anorexic, 73-year-old female who appears her stated age. HEENT: Normocephalic, atraumatic. Mucous membranes are dry. MUSCULOSKELETAL: The patient moves independently from the sitting to standing position. She walks without antalgic features. She does sit on a cushion due to complaints of perirectal pain that radiates into her legs. IMPRESSION: 1. Perirectal pain. 2. Neuropathic pain. 3. Coccydynia. 4. Management of opioids for her chronic pain. PLAN: We discussed treatment options with the patient today. The patient does use her medications very sparingly to control her pain, taking a fourth to half of Suboxone as needed. We will refill this medication 05/02, quantity 30 as well as Zofran 4 mg ODT, #15. She does take this for nausea occasionally. The patient is seen by Dr. Juan Stiles, who collaborated her care today. <ELECTRONICALLY SIGNED> By: Gabrielle Krishnamurthy 11/05/19 1016 [id number] Gabrielle Krishnamurthy /nt
== END ==
LOC: PAIN 06:55
DX: K62.89 Other specified diseases of anus and rectum (principal); M53.3 Sacrococcygeal disorders, not elsewhere classified; G62.9 Polyneuropathy, unspecified; Z79.891 Long term (current) use of opiate analgesic; Z88.1 Allergy status to other antibiotic agents; Z88.5 Allergy status to narcotic agent; Z88.8 Allergy status to other drugs, medicaments and biological substances; Z91.040 Latex allergy status

== ENCOUNTER → 2020-04-12 | Outpatient (CLI) | payer OTHER, MEDICARE ==
[~2020-04-12] VITALS: Ht 165.1 cm; Wt 47.5 kg
[~2020-04-12] MED LIST changes: +ONDANSETRON ODT4 MG PO
[2020-04-12 13:17] VITALS: BP 102/58
--- NOTE | 2020-04-12 13:33 | NUR ---
Pain Clinic Assessment: 1. History of Osteoarthritis: hands toes History of Rheumatoid Arthritis: Not Applicable 2. Height: 5 ft. 5 in. 165.1 cm. Weight: 104.8 lb. oz. 47.537 kg. Patient's BMI: 17.4 3. Vital Signs: BP: 102/58 Pulse: 74 Resp: 14 Temp: 02 Sat: 97 ECG Mon: 4. Pain Intensity: 6 5. Fall Risk: Dizziness: N Needs help standing or walking: N Fallen in the last 3 months: N Fall risk comments: 6. Patient on Blood Thinner: None 7. History of Hypertension: N 8. Opioid Therapy greater than 6 weeks: Y Opiate Contract Signed: 12/31/17 9. Risk Assessment Tool Provided: LOW RISK 0 10. Functional Assessment Tool: 11. Recreational Drug Use: Never Drug Type: Tobacco Use: Former Smoker Tobacco Type: Cigarettes Amount or Packs/day: 2 ppd How Many Years: 40 Alcohol Use: No Frequency: Quant:
--- NOTE | 2020-04-13 07:53 | HPC ---
[facility] [address] [place] [address] PAIN MANAGEMENT CONSULTATION Name: VIVIENNE SAVAGE Room #: REG [facility]..#: [id number] Admission: 04/12/20 Attend Phys: Gabrielle Krishnamurthy Discharge: Date of : 47 Report #: [id number] THIS REPORT FOR: cc: Wiley Moore MD, Kirk D. MD Hocker, Amanda CNS ~ CC: Linda Stiles MD DATE OF SERVICE: 04/12/2020 CHIEF COMPLAINT: Chronic intractable pain, coccydynia and rectal pain. HISTORY OF PRESENT ILLNESS: This is a very pleasant 74-year-old female who returns to the pain clinic for a refill of her Suboxone that she uses to help treat her ongoing perirectal pain and neuropathic pain. She finds that the Suboxone taking a fourth to a half of a film once a day is beneficial in controlling her pain, rating her pain score today at 6/10. It is an aching, occasionally sharp pain, worse with sitting down. She usually sits on a pillow and then takes her medication and finds this beneficial. She denies problems with constipation or daytime somnolence as a result of her medications. ALLERGIES: AMOXICILLIN, OXYBUTYNIN, TROSPIUM, TEGASEROD, HYDROGEN MALEATE, STATINS, HYDROCODONE, MIRALAX AND LATEX. CURRENT LIST OF MEDICATIONS: Suboxone / film, Zofran p.r.n., Synthroid, trazodone and lorazepam. PQRS: 1. She has osteoarthritic changes in her hands and feet. Denies rheumatoid arthritis. 2. Height is 5 feet 5 inches, weight is 104, BMI is 17. 3. Vital signs 102/58, pulse is 74, respirations 14, oxygen sat is 97%. 4. Pain score is 6/10. 5. Denies dizziness, does not need help walking or standing, has not fallen in the last 3 months. 6. The patient is not on any blood thinners or medicine for hypertension. 7. Opioid therapy is greater than 6 weeks; therefore, an opioid signed contract is on the chart. Risk assessment is low. Functional assessment is 38/70. 8. Recreational drug use, she denies. She is a former smoker and does not drink alcohol. According to the prescription monitoring system, the patient is filling appropriately. She does take lorazepam as well as her opioids, but takes very small doses of both and does not take them together. PHYSICAL EXAMINATION: [facility] [address] [place] [address] PAIN MANAGEMENT CONSULTATION Name: VIVIENNE SAVAGE [id number] Admission: 04/12/20 Attend Phys: Gabrielle Krishnamurthy Discharge: Date of : 47 Report #: [id number] GENERAL: Alert and orientated, anorexic 74-year-old, placing her current pain score at 6/10. She is alert and orientated and a good historian. HEENT: Normocephalic, atraumatic. Extraocular eye muscles are intact. She is wearing a mask. MUSCULOSKELETAL: She moves independently in her ambulation and she is without antalgic features. She is sitting on a pillow that helps reduce her pain in her coccyx area, which is tender when she does sit. She complains of pain in the perirectal area that radiates into her upper legs. IMPRESSION: 1. Perirectal pain. 2. Coccydynia. 3. Neuropathic pain. 4. Management of opioids for medications. We reviewed the fact that opiate medications are being used to provide analgesia adequate to support activities of daily living, not attempting to achieve a specific pain score on the 0-10 Visual Analog Scale. The current opiate medications are providing sufficient analgesia to allow the patient to participate in activities of daily living. The patient is not exhibiting any aberrant behavior suggestive of drug diversion. The patient is not having any adverse reactions to medications. The patient is not suffering from daytime somnolence or mental acuity changes. The patient is managing opiate-induced constipation with appropriate vycr-sua-paeqgpo agents and dietary considerations. The patient was counseled on concern for caution with operating a motor vehicle while using opiate medications. PLAN: 1. We discussed treatment options with the patient today. The patient finds her Suboxone very beneficial using a fourth of a film most days, occasionally on increased pain days, she will use a half of a film. Typically, a script will last her 3-4 months depending on her usage. Today, she did request script for 56 pills. She uses [facility] and she has no coverage for her medication. I explained to her that we are unable to give that many because that will be greater than the 3-month supply. We will continue her on her #30 films which does last her 3-4 months. The patient verbalizes understanding. 2. We will refill her Zofran ODT, the patient takes 4 mg on days that she has significant nausea. #8 will be dispensed per the patient's request. 3. The patient seen in collaboration today with Dr. Juan Stiles who did write the medications for her. The patient will return in 3-4 months as needed for medication refills. <ELECTRONICALLY SIGNED> By: Gabrielle Krishnamurthy 04/13/20 [id number] Gabrielle Krishnamurthy /darrell
== END ==
LOC: PAIN 07:04
PROVIDERS: ATTEND Clinical Nurse Specialist Adult Health
DX: M53.3 Sacrococcygeal disorders, not elsewhere classified (principal); K62.89 Other specified diseases of anus and rectum; G89.29 Other chronic pain; I10 Essential (primary) hypertension; M79.2 Neuralgia and neuritis, unspecified; M19.042 Primary osteoarthritis, left hand; M19.041 Primary osteoarthritis, right hand; M19.072 Primary osteoarthritis, left ankle and foot; M19.071 Primary osteoarthritis, right ankle and foot; Z79.891 Long term (current) use of opiate analgesic

== ENCOUNTER → 2020-11-08 | Outpatient (CLI) | payer OTHER, MEDICARE ==
--- NOTE | 2020-11-09 09:53 | HPC ---
[facility] [place] [address] [place] [address] PAIN MANAGEMENT CONSULTATION Name: MARI SAVAGE Room #: REG [facility]..#: [id number] Admission: 11/08/20 Attend Phys: Gabrielle Krishnamurthy Discharge: Date of : 47 Report #: [id number] THIS REPORT FOR: cc: ABHI WARREN MD, OSSAMA MD Hocker,Gabrielle Granados DATE OF SERVICE: 11/08/2020 CHIEF COMPLAINT: Chronic intractable pain, coccydynia, and rectal pain. HISTORY OF PRESENT ILLNESS: This is a telemedicine appointment and I am speaking with Mari via the telephone from 11:30 to 11:50 that she has consented for. This is a 74-year-old female who I am speaking via the telephone. She does not have any audio-visual capabilities on her phone. Today, she is reporting a pain score of 6-7 depending on the time of day. Her pain is worse in her perirectal and coccyx area. She finds that the Suboxone a fourth of a film every day has been beneficial and averages a pain score of 6-7. She reports sitting on any sitting is painful. She does carry a pillow with her at all times and does find that beneficial as well as lying down. She reports a sharp aching sensation. She has been utilizing her medications very sparingly and we have not seen her for several months due to this factor. She also pays for her medication out of pocket, so she does take them only as needed. We did discuss the patient's weight. She is a very anorexic patient. She states that her weight has been stable the last month at 107 to 108 pounds. ALLERGIES: AMOXICILLIN, OXYBUTYNIN, TROSPIUM, TEGASEROD, HYDROGEN MALEATE, STATINS, HYDROCODONE, MIRALAX, AND LATEX. CURRENT MEDICATIONS: Suboxone 8/2 film, Zofran p.r.n., Synthroid, trazodone, and lorazepam. PQRS: 1. She has arthritic changes in her hands and feet. Denies any rheumatoid arthritis. Per the patient's report, weight is 107-108. No vital signs were taken due to a telemedicine appointment. Pain score is 6 to 7. The patient denies dizziness. She does not need assistance with walking or standing. She has not fallen in the last 3 months. She is not on any blood thinners or medicine for hypertension. 2. Her opioid therapy is greater than 6 weeks; therefore, an opioid signed contract is on the chart. Her risk assessment is low. Functional assessment is 38/70. Recreational drug use, she denies. She is a former smoker and [place] [address] PAIN MANAGEMENT CONSULTATION Name: MARI SAVAGE Room #: REG [facility]#: [id number] Admission: 11/08/20 Attend Phys: Gabrielle Krishnamurthy Discharge: Date of : 47 Report #: [id number] According to the prescription monitoring system, she is filling appropriately. She has only filled our medication last March and, since that time, has only filled lorazepam, which she takes from her primary care doctor on a regular basis. PHYSICAL EXAMINATION: Deferred due to a telemedicine appointment. She is alert and orientated, answering all my questions appropriately. She is a good historian. She reports pain in her coccyx region, especially when sitting. IMPRESSION: 1. Perirectal pain. 2. Coccydynia. 3. Neuropathic pain. 4. Management of opioid medications on a scheduled opioid agreement. PLAN: 1. We discussed treatment options with the patient today. The patient finds the Suboxone beneficial, taking a quarter of a film daily. She does have pain score rating at 6-7. I reminded the patient that she is able to take more if need be. The patient does pay out of the pocket for her medications and finds she is able to get by with a quarter film daily to control her pain, which does then, in turn, help her keep her cost down. We will have Dr. Juan Stiles call in her Suboxone 05/02, #30. This will last the patient three-month supply at least. 2. The patient is not needing Zofran at this time. She feels that she has been doing quite well with her nausea and denies refills at this time. 3. The patient discussed this Telemed appointment with Dr. Juan Stiles who collaborated care. The patient will call for an appointment in a few months' time. <ELECTRONICALLY SIGNED> By: Gabrielle Krishnamurthy 11/09/20 [id number] Gabrielle Krishnamurthy /darrell
== END ==
LOC: PAIN 07:08 → TELEPC 07:08 → PAIN 09:28
PROVIDERS: ATTEND Clinical Nurse Specialist Adult Health
DX: M53.3 Sacrococcygeal disorders, not elsewhere classified (principal); G89.29 Other chronic pain; R10.2 Pelvic and perineal pain; G62.9 Polyneuropathy, unspecified; F11.20 Opioid dependence, uncomplicated; Z88.8 Allergy status to other drugs, medicaments and biological substances; Z79.899 Other long term (current) drug therapy

== ENCOUNTER → 2021-04-11 | Outpatient (CLI) | payer OTHER, MEDICARE ==
[~2021-04-11] VITALS: Ht 165.1 cm; Wt 46.2 kg
[2021-04-11 12:47] VITALS: BP 91/65
--- NOTE | 2021-04-11 13:33 | NUR ---
Pain Clinic Assessment: 1. History of Osteoarthritis: hands toes History of Rheumatoid Arthritis: Not Applicable 2. Height: 5 ft. 5 in. 165.1 cm. Weight: 101.8 lb. oz. 46.176 kg. Patient's BMI: 16.9 3. Vital Signs: BP: 91/65 Pulse: 73 Resp: 12 Temp: 02 Sat: 97 ECG Mon: 4. Pain Intensity: 6 5. Fall Risk: Dizziness: N Needs help standing or walking: N Fallen in the last 3 months: N Fall risk comments: 6. Patient on Blood Thinner: None 7. History of Hypertension: N 8. Opioid Therapy greater than 6 weeks: Y Opiate Contract Signed: 12/31/17 9. Risk Assessment Tool Provided: LOW RISK 0 10. Functional Assessment Tool: 11. Recreational Drug Use: Never Drug Type: Tobacco Use: Former Smoker Tobacco Type: Amount or Packs/day: How Many Years: Alcohol Use: No Frequency: Quant:
== END ==
LOC: PAIN 10:51
PROVIDERS: ATTEND Clinical Nurse Specialist Adult Health
DX: G89.4 Chronic pain syndrome (principal); M53.3 Sacrococcygeal disorders, not elsewhere classified; G62.9 Polyneuropathy, unspecified; Z79.891 Long term (current) use of opiate analgesic; Z79.899 Other long term (current) drug therapy; Z87.891 Personal history of nicotine dependence; Z88.1 Allergy status to other antibiotic agents; Z88.5 Allergy status to narcotic agent; Z88.8 Allergy status to other drugs, medicaments and biological substances; Z91.040 Latex allergy status

== ENCOUNTER → 2021-09-29 | Outpatient (CLI) | payer OTHER, MEDICARE ==
[~2021-09-29] VITALS: Ht 165.1 cm; Wt 44.9 kg
[2021-09-29 09:52] VITALS: BP 119/53
--- NOTE | 2021-09-29 09:54 | NUR ---
Pain Clinic Assessment: 1. History of Osteoarthritis: hands toes History of Rheumatoid Arthritis: Not Applicable 2. Height: 5 ft. 5 in. 165.1 cm. Weight: 99.0 lb. oz. 44.906 kg. Patient's BMI: 16.5 3. Vital Signs: BP: 119/53 Pulse: 77 Resp: 16 Temp: 02 Sat: 96 ECG Mon: 4. Pain Intensity: 7 5. Fall Risk: Dizziness: N Needs help standing or walking: N Fallen in the last 3 months: N Fall risk comments: 6. Patient on Blood Thinner: None 7. History of Hypertension: N 8. Opioid Therapy greater than 6 weeks: Y Opiate Contract Signed: 12/31/17 9. Risk Assessment Tool Provided: LOW RISK 0 10. Functional Assessment Tool: 11. Recreational Drug Use: Never Drug Type: Tobacco Use: Former Smoker Tobacco Type: Amount or Packs/day: How Many Years: Alcohol Use: No Frequency: Quant:
== END ==
LOC: PAIN 06:51
PROVIDERS: ATTEND Clinical Nurse Specialist Adult Health
DX: G89.29 Other chronic pain (principal); K62.89 Other specified diseases of anus and rectum; M54.50 Low back pain, unspecified; M53.3 Sacrococcygeal disorders, not elsewhere classified; Z88.8 Allergy status to other drugs, medicaments and biological substances; Z79.899 Other long term (current) drug therapy